=== PATIENT | female | born 2000 | race African-American/Black ===

== ENCOUNTER 2021-08-07 18:44 | Outpatient (REF) | payer OTHER, SELFPAY ==
[2021-08-09 15:03] LABS: COVID-19 RT-PCR UVMMC Result Negative (Negative)
== END 2021-08-07 18:45 | disposition home or self-care (01) ==
LOC: LBN 18:44
PROVIDERS: Visit Provider Nurse Practitioner Family
DX: J02.9 Acute pharyngitis, unspecified (principal); Z20.822 Contact with and (suspected) exposure to COVID-19
CPT/HCPCS: 87077; U0003; 87070

== ENCOUNTER 2021-08-30 18:22 | Emergency (ER) | payer OTHER, SELFPAY ==
[2021-08-30 18:27] VITALS: BP 117/65; PULSE 78; RESP 16; TEMP 37.5; O2SAT 100
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
[2021-08-30] MEDS: Penicillin V POTASSIUM 500 MG TAB PO (18:58)
[2021-08-30] MEDS: Penicillin V POTASSIUM 500 MG TAB, 4 TABS/BTL PO (18:58)
== END 2021-08-30 19:03 | disposition home or self-care (01) ==
PROVIDERS: Emergency Provider Physician Assistant
DX: S01.511A Laceration without foreign body of lip, initial encounter (principal); S09.93XA Unspecified injury of face, initial encounter; W50.0XXA Accidental hit or strike by another person, initial encounter; Y93.67 Activity, basketball; Z97.2 Presence of dental prosthetic device (complete) (partial)
CPT/HCPCS: 99283